=== PATIENT | male | born 1935 | race Caucasian/White ===

== ENCOUNTER 2020-02-02 06:01 | Day surgery (SDC) | payer MEDICARE ==
[~2020-02-02] VITALS: Ht 170.2 cm; Wt 78.1 kg
[2020-02-02] VITALS (9 sets, daily range): BP systolic 100–129; BP diastolic 64–75
[~2020-02-02 06:01] MED LIST: ASPI-845 PO; DOCUMENT DATE & TIME OF BETA-BLOCKER PO ONE; GLIP2.5T3 PO; LOSA25TA41 PO; METO25TA6 PO; ROSU40TA22 PO; cefazolin/dext.iso 2gm/100ml 100 ML IV ONE; famotidine 20mg tablet PO ONE; ringers solution, lacted 1,000 ML IV SCH
[2020-02-02] MEDS ORDERED: LIDOcaine 1% (10mg/ml) 2ml vial ONE (06:10)
[2020-02-02 06:38] LABS: BASOPHILS # (AUTO) 0.1 X10'3 (0-0.2); EOSINOPHILS # (AUTO) 0.9 X10'3 (0-0.9); EOSINOPHILS % (AUTO) 9.2 % (0-6); LYMPHOCYTES # (AUTO) 3.5 X10'3 (1.1-4.8); LYMPHOCYTES % (AUTO) 35.5 % (21-51); MEAN CORPUSCULAR HEMOGLOBIN 31.1 PG (27.0-31.0); MEAN CORPUSCULAR HGB CONC 34.1 g/dL (33.0-36.5); MEAN CORPUSCULAR VOLUME 91.2 FL (78-98); MEAN PLATELET VOLUME 7.2 FL (7.4-10.4); MONOCYTES # (AUTO) 0.9 X10'3 (0-0.9); MONOCYTES % (AUTO) 9.4 % (2-12); NEUTROPHILS # (AUTO) 4.4 X10'3 (1.8-7.7); NEUTROPHILS % (AUTO) 44.9 % (42-75); PRE OP HEMATOCRIT 42.8 % (42.0-52.0); PRE OP HEMOGLOBIN 14.6 g/dL (14.0-17.9); PRE OP PLATELET COUNT 330 X10'3 (140-440); RED CELL DISTRIBUTION WIDTH 12.8 % (11.5-14.5)
[2020-02-02 06:53] LABS: PRE OP PROTIME 10.1 SECONDS (9.0-12.0)
[2020-02-02 06:55] LABS: ALBUMIN 4.5 G/DL (3.4-5.0); ALBUMIN/GLOBULIN RATIO 1.3 (1.1-1.5); ALKALINE PHOSPHATASE 63 IU/L (46-116); BLOOD UREA NITROGEN 26 MG/DL (7-18); BUN/CREATININE RATIO 14.2 (5.4-32.0); CHLORIDE 105 MMOL/L (99-107); CREATININE 1.83 MG/DL (0.60-1.10); PRE OP ALT 32 U/L (30-65); PRE OP ANION GAP 9 (8-16); PRE OP AST 20 U/L (10-37); PRE OP BILIRUB, TOTAL 0.4 MG/DL (0.0-1.0); PRE OP GLUCOSE 127 MG/DL (70-104); PRE OP SODIUM 140 MMOL/L (135-145); TOTAL CARBON DIOXIDE 26.3 MMOL/L (24-32); TOTAL PROTEIN 8.1 G/DL (6.4-8.2); eGFR 36 ML/MIN
[2020-02-02] MEDS ORDERED: ringers solution, lacted 1,000 ML IV SCH (07:57)
[2020-02-02] MEDS ORDERED: morphine 2 MG/ML inj. syringe IV PRN (08:00)
[2020-02-02] MEDS ORDERED: morphine 4 MG/ML inj SYRINge IV PRN (08:00)
[2020-02-02] MEDS ORDERED: enalaprilat dihydrate 2.5mg/2ml vial IV PRN (08:00)
[2020-02-02] MEDS ORDERED: ondansetron/PF 4mg/2ml inj IV PRN (08:00)
[2020-02-02] MEDS ORDERED: fentaNYL/PF 50MCG/1 ML 2ML syringe IV PRN ×2 (08:00)
[2020-02-02] MEDS ORDERED: hydrALAZINE 20mg/ml inj. IV PRN (08:00)
[2020-02-02] MEDS ORDERED: ceFAZolin 1000mg inj ONE (08:53)
[2020-02-02] MEDS ORDERED: LIDOcaine 1% 30ml preserv. free vial ONE (08:53)
[2020-02-02] MEDS ORDERED: MIDAZolam 5mg/5ml vial ONE (09:10)
[2020-02-02] MEDS ORDERED: fentaNYL/PF 50MCG/1 ML 2ML syringe ONE (09:10)
--- NOTE | 2020-02-02 09:49 | NUR ---
RECEIVED FROM OR VIA ANASTASIYA ACCOMPANIED BY ANESTHESIA DR DC, REPORT GIVEN. PT AWAKE AND ALERT WITH NO COMPLAINT OF PAIN AT THIS TIME. DRESSING CORINE CHEST CLEAN AND DRY, WEIGHT APPLIED TO SITE. GARCIA, SKIN PINK AND WARM. 20 GAUGE PIV L HAND PATENT AND RUNNING LR AT 100 ML/HR. Addendum: 02/02/20 at 1009 by Cassy Frazier RN Amended: Links added.
--- NOTE | 2020-02-02 10:59 | NUR ---
PT AWAKE AND ALERT, VSS, NO C/O PAIN, TOLERATING FLUIDS, DRESSING CDI, ABLE TO URINATE, DISCHARGE INSTRUCTIONS GIVEN, PT VERBALIZED UNDER STANDING. 20 GAUGE PIV L HAND DC/D CATH TIP INTACT. TRANSFERRED VIA WHEELCHAIR TO FAMILY AND HOME IN PRIVATE VEHICLE.
== END 2020-02-02 10:59 | disposition home or self-care (01) ==
LOC: PAS 06:01
PROVIDERS: ATTEND Surgery
DX: Z45.010 Encounter for checking and testing of cardiac pacemaker pulse generator [battery] (principal); I25.10 Atherosclerotic heart disease of native coronary artery without angina pectoris; E11.22 Type 2 diabetes mellitus with diabetic chronic kidney disease; I12.9 Hypertensive chronic kidney disease with stage 1 through stage 4 chronic kidney disease, or unspecified chronic kidney disease; N18.9 Chronic kidney disease, unspecified; Z79.899 Other long term (current) drug therapy; Z79.01 Long term (current) use of anticoagulants; Z98.890 Other specified postprocedural states; Z94.7 Corneal transplant status; Z95.1 Presence of aortocoronary bypass graft; Z87.891 Personal history of nicotine dependence; Z79.82 Long term (current) use of aspirin; Z72.89 Other problems related to lifestyle
CPT/HCPCS: 33228; 36415; 71045; 80053; 82948; 85025; 85610; 85730; 93005; C1785; J0690; J2001; J2250; J3010; J7120; A4215; A4618; A6258; A7000